=== PATIENT | male | born 1995 | race Caucasian/White ===

== ENCOUNTER 2025-06-24 16:20 | Outpatient (AMB) | payer OTHER, SELFPAY ==
--- NOTE | 2025-06-24 16:22 | A.OFFPC_ITS ---
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 Chronic back pain: - The patient has experienced back pain for two years, primarily due to prolonged driving, with no imaging studies conducted. - Pain worsens with prolonged standing o r driving and is relieved by posture changes. No regular medication use reported. Earwax impaction: - The patient has a history of earwax bu ildup causing hearing issues, previously resolved with ear drops. - Current examination shows significant earwax, with Debrox drops recommended for removal. Sleep apnea: - Reports snoring and waking up tired, w ith symptoms previously improved by weight loss. A home sleep study is planned. Review of Systems - Musculoskeletal: Reports chronic back pain for two years, worsened by prolonged standing or driving. - Neurological: Denies headaches. - Respiratory: Reports snoring and wakin g up tired. Denies waking up gasping for air. 10-point ROS reviewed and negative excep t as noted in HPI Past Medical History - Previous cyst removal from the neck ar ea, not considered a formal surgery. Health Maintenance - Baseline laboratory tests ordered: CBC , CMP, lipid panel, vitamin D, vitamin B12, folate, hemoglobin A1c, HIV, Hepatitis B and C screening. - Exercise recommendation: 150 minutes o f moderate-intensity exercise per week, using the talk test to gauge intensity. - Dietary consultation suggested for satish ght management. Physical Exam General: Well-appearing, in no acute distress. Vital signs: Blood pressure is slightly elevated at this encounter. HEENT: Normocephalic, atraumatic. PERRLA, EOMI. Conjunctiva clear, sclera anicteric. Oropharynx clear, mucous membranes moist. TMs intact bilaterally. Notable ear wax buildup. Neck: Supple, no lymphadenopathy, no thyromegaly, no JVD or carotid bruits. Cardiovascular: RRR, normal S1/S2, no murmurs, rubs, or gallops. Peripheral pulses 2+ and symmetric. No edema. Respiratory: Lungs clear to auscultation bilaterally, no wheezes, rales, or rhonchi. Normal effort. Abdomen: Soft, non-tender, non-distended. Normoactive bowel sounds. No hepatosplenomegaly, no masses. MSK: Full range of motion, no joint swelling or deformity. Normal gait. Reports chronic back pain, exacerbated by prolonged standing or driving. Skin: Warm, dry, intact. No rashes, lesions, or pallor. Neuro: Alert and oriented x3. Cranial nerves II-XII intact. Strength 5/5 throughout. Sensation intact. Reflexes 2+ symmetric. Normal coordination and gait. Psych: Appropriate mood and affect. Normal judgment and insight. Plan 1. Chronic Back Pain - X-rays of the cervical and thoracic sp ine ordered. Ibuprofen 800 mg prescribed for pain. Referral to physical therapy made. 2. Earwax Impaction - Debrox ear drops prescribed. Follow-up in two weeks for earwax removal. 3. Sleep Apnea - Home sleep study arranged to assess fo r sleep apnea. Discussion Notes I discussed with the patient the importance of addressing his chronic back pain through imaging and physical therapy. We also talked about managing earwax impaction with Debrox drops and the need for a follow-up visit. Additionally, I recommended a home sleep study to evaluate for sleep apnea, given his symptoms of snoring and waking up tired. We reviewed the benefits of these interventions and the importance of follow-up care. Patient was informed and verbally consented to the use of an ambient scribe for clinic note documentation during this visit. Patient Instructions - Take ibuprofen 800 mg as needed for ba ck pain. - Use Debrox ear drops as directed to so ften earwax. - Attend follow-up appointment in two we eks for earwax removal. - Complete the home sleep study as sched uled. - Engage in 150 minutes of moderate-inte nsity exercise weekly. [facility] Medical History (Updated 06/24/25 @ 16:55 by Tio Larose MD) Snoring Neck pain, musculoskeletal Family History (Updated 06/24/25 @ 16:24 by Janeth Cabrera CMA) Mother No problems noted. Father No problems noted. Social History (Updated 06/24/25 @ 16:26 by Janeth Cabrera CMA) Housing: Apartment Alcohol intake: never Patient Tobacco Use Status: Never used Tobacco service: No Current occupational status: employed Cognitive needs: No Hearing needs: No Vision needs: No Questionnaire PHQ-9 Over the last 2 weeks, how often have you been bothered by any of the following problems? 1. Little interest or pleasure in doing things: not at all 2. Feeling down, depressed, or hopeless: not at all 3. Trouble falling or staying asleep, or sleeping too much: not at all 4. Feeling tired or having little energy: several days 5. Poor appetite or overeating: not at all 6. Feeling bad about yourself - or that you are a failure or have let yourself or your family down: not at all 7. Trouble concentrating on things, such as reading the newspaper or watching television: not at all 8. Moving or speaking so slowly that other people could have noticed. Or the opposite - being so fidgety or restless that you have been moving around a lot more than usual: not at all 9. Thoughts that you would be better off or of hurting yourself in some way: not at all Total score: 1 Source: Developed by Drs. Miguel Montenegro, Sharee Perez, Sarbjit Cruz and colleagues, with an educational humaira from [employer]. Thrive Questionnaire Date Thrive assessed: 06/24/25 I am a: Patient What is your living situation today?: I have a steady place to live Within the past 12 months, did the food you bought not last and you didn't have the money to get more?: Sometimes True Within the past 12 months, did you worry whether your food would run out before you got money to buy more?: Sometimes True Do you have trouble paying for medicines?: No Do you have trouble getting transportation to medical appointments?: No Do you have trouble paying your heating and electricity bill?: No Do you have trouble taking care of your child, family member or friend?: No Do you have trouble with day-to-day activities such as bathing, preparing meals, shopping, managing finances, etc.?: No Are you currently unemployed and looking for a job?: No Are you interested in more education?: No Please select the resources that you would like help with: None Currently or been in a relationship where the following occur: No concerns reported THRIVE Score: 2 AUDIT C Alcohol Use Questionnaire (AUDIT-C) 1. How often do you have a drink containing alcohol?: Never Total Score: 0 JOAQUINA-7 AMB Questionnaire JOAQUINA-7 Date JOAQUINA - 7 assessed: 06/24/25 Feeling nervous, anxious, or on edge: 0 = Not at all Not being able to stop or control worryin = Not at all Worrying too much about different things: 0 = Not at all Trouble relaxin = Not at all Being so restless that it is hard to sit still: 0 = Not at all Becoming easily annoyed or irritable: 0 = Not at all Feeling afraid as if something awful might happen: 0 = Not at all Total JOAQUINA-7 score (0-4 normal; 5-9 mild; 10-14 moderate; 15-21 severe): 0 Source: Developed by Drs. Miguel Montenegro, Sharee Perez, Sarbjit Cruz and colleagues, with an educational humaira from [employer]. Physical exam (Primary Care) BMI result Body Mass Index 33.8 Tobacco/Smoking Status: Tobacco use Status Patient Tobacco Use Status Never used Tobacco 06/24/25 16:26 Thrive Assessment: Date of Thrive Assessment Date Thrive assessed 06/18/25 06/18/25 13:25 Currently or been in a relationship where the following occur: No concerns reported Coding Level of Care Code New Pt Level 3 (08896) Diagnoses Establishing care with new doctor, encounter for Z76.89 Encounter for screening, unspecified Z13.9 Counseling, unspecified Z71.9 Hypertension screen Z13.6 Screening for diabetes mellitus Z13.1 Screening for lipoid disorders Z13.220 Screening for depression Z13.31 Screening for HIV (human immunodeficiency virus) Z11.4 Routine screening for STI (sexually transmitted infection) Z11.3 Elevated blood pressure reading R03.0 Class 1 obesity E66.811 Neck pain, musculoskeletal M54.2 Snoring R06.83 Cervicalgia M54.2 Assessment & Plan Assessment & Plan (1) Establishing care with new doctor, encounter for: Code(s): Z76.89 - Persons encountering health services in other specified circumstances (2) Encounter for screening, unspecified: Code(s): Z13.9 - Encounter for screening, unspecified (3) Counseling, unspecified: Code(s): Z71.9 - Counseling, unspecified (4) Hypertension screen: Code(s): Z13.6 - Encounter for screening for cardiovascular disorders (5) Screening for diabetes mellitus: Code(s): Z13.1 - Encounter for screening for diabetes mellitus (6) Screening for lipoid disorders: Code(s): Z13.220 - Encounter for screening for lipoid disorders (7) Screening for depression: Code(s): Z13.31 - Encounter for screening for depression (8) Screening for HIV (human immunodeficiency virus): Code(s): Z11.4 - Encounter for screening for human immunodeficiency virus [HIV] (9) Routine screening for STI (sexually transmitted infection): Code(s): Z11.3 - Encounter for screening for infections with a predominantly sexual mode of transmission (10) Elevated blood pressure reading: Code(s): R03.0 - Elevated blood-pressure reading, without diagnosis of hypertension (11) Class 1 obesity: Code(s): E66.811 - Obesity, class 1 (12) Neck pain, musculoskeletal: Code(s): M54.2 - Cervicalgia Category: Medical (13) Snoring: Code(s): R06.83 - Snoring Category: Medical (14) Cervicalgia: Code(s): M54.2 - Cervicalgia Plan Orders: Orders Complete Blood Count Auto Diff Today Z13.9 - Encounter for screening, unspecified, Z76.89 - Persons encountering health services in other specified circumstances Hemoglobin A1c Today Z13.9 - Encounter for screening, unspecified, Z76.89 - Persons encountering health services in other specified circumstances Hepatitis B Surface Antibody Today Z13.9 - Encounter for screening, unspecified, Z76.89 - Persons encountering health services in other specified circumstances Hepatitis B Surface Antigen Today Z13.9 - Encounter for screening, unspecified, Z76.89 - Persons encountering health services in other specified circumstances Hepatitis C Antibody Today Z13.9 - Encounter for screening, unspecified, Z76.89 - Persons encountering health services in other specified circumstances Lipid Panel Today Z13.9 - Encounter for screening, unspecified, Z76.89 - Persons encountering health services in other specified circumstances Comprehensive Met. Panel Today Z13.9 - Encounter for screening, unspecified, Z76.89 - Persons encountering health services in other specified circumstances HIV Ab/Ag Today Z13.9 - Encounter for screening, unspecified, Z76.89 - Persons encountering health services in other specified circumstances UA CC w/rflx Micro + Cult Today Z13.9 - Encounter for screening, unspecified, Z76.89 - Persons encountering health services in other specified circumstances Vitamin B12 and Folate Today Z13.9 - Encounter for screening, unspecified, Z76.89 - Persons encountering health services in other specified circumstances Vitamin D 1,25 dihydroxy Today Z13.9 - Encounter for screening, unspecified, Z76.89 - Persons encountering health services in other specified circumstances XR cervical spine 3V Today M54.2 - Cervicalgia XR thoracic spine 2V Today M54.2 - Cervicalgia PT Evaluation and Treatment Today M54.2 - Cervicalgia RT home sleep study Today E66.811 - Obesity, class 1, R03.0 - Elevated blood- pressure reading, without diagnosis of hypertension, R06.83 - Snoring Referrals Nutrition/Dietitian Referral E66.811 - Obesity, class 1 Medications: New ibuprofen 800 mg PO Q8H 30 tabs 0RF carbamide peroxide 6.5% (Debrox) 5 drps otic (ears) Q12H 15 mL 0RF 4 days
[2025-06-24 16:28] VITALS: BP 144/89; PULSE 81; TEMP 36.7; O2SAT 98; BMI 33.8
== END 2025-06-24 17:01 | disposition home or self-care (01) ==
LOC: HO.HMCFMS 16:21
PROVIDERS: Visit Provider Student in an Organized Health Care Education/Training Program
DX: R03.0 Elevated blood-pressure reading, without diagnosis of hypertension (principal); M54.2 Cervicalgia; R06.83 Snoring; E66.811 Obesity, class 1; Z68.33 Body mass index [BMI] 33.0-33.9, adult